=== PATIENT | female | born 1930 | race Caucasian/White ===

== ENCOUNTER → 2016-11-20 | Outpatient (CLI) | payer MEDICARE, OTHER ==
--- NOTE | 2016-11-20 13:28 | RADRPT ---
PROCEDURE: XR pelvis/left hip. CLINICAL INDICATION: Hip pain TECHNIQUE: AP pelvis/AP and lateral left hip view available for review. COMPARISON: None available FINDINGS: ORIF of old healed left intertrochanteric fracture with an intramedullary bessie and a dynamic compress ion screw. There is no evidence of loosening of the prosthesis. The osseous structures are otherwise normal in mineralization, architecture and alignment. No acute fractures are identified. No osseous lesions are identified. The joints are unremarkable. There a re degenerative changes of the lower lumbar spine The soft tissues are unremarkable. IMPRESSION: ORIF of old healed left intertrochanteric fracture with an intramedullary bessie and a dynamic compress ion screw. Lower lumbar degenerative disk disease RPTAT: [facility] .Wang Harrington MD, Date Time Electronically viewed and signed by .Wang Harrington MD, on 11/20/2016 13:28 .B/
== END | disposition home or self-care (01) ==
LOC: HKI 10:57
PROVIDERS: ATTEND Orthopaedic Surgery
DX: S72.142S Displaced intertrochanteric fracture of left femur, sequela (principal); W19.XXXS Unspecified fall, sequela; M25.552 Pain in left hip
CPT/HCPCS: 73502; G0463

== ENCOUNTER → 2017-02-10 | Outpatient (CLI) | payer MEDICARE, OTHER ==
--- NOTE | 2017-02-10 13:37 | RADRPT ---
PROCEDURE: XR pelvis/left hip. CLINICAL INDICATION: Hip pain TECHNIQUE: AP pelvis/AP and lateral left hip views available for review. COMPARISON: 11/20/2016 FINDINGS: ORIF of old healed left intertrochanteric fracture with an intramedullary bessie and a dynamic compress ion screw. There is no evidence of loosening of the prosthesis. There is no evidence of hardware arnol lure. The osseous structures are otherwise normal in mineralization, architecture and alignment. No acute fractures are identified. No osseous lesions are identified. The joints are unremarkable. There are degenerative changes of the lower lumbar spine The soft tissues are unremarkable. IMPRESSION: ORIF of old healed left intertrochanteric fracture with an intramedullary bessie and a dynamic compress ion screw. Lower lumbar degenerative disk disease RPTAT: [facility] .Wang Harrington MD, Date Time Electronically viewed and signed by .Wang Harrington MD, on 02/10/2017 13:37 .B/
--- NOTE | 2017-02-10 13:39 | RADRPT ---
PROCEDURE: XR left femur. CLINICAL INDICATION: Pain TECHNIQUE: AP and lateral views of the lower femur performed. Proximal femur and hip on hip views of 02/10/2017 COMPARISON: No prior studies are available for comparison. FINDINGS: ORIF of old healed left intertrochanteric fracture with a locking intramedullary bessie and a dynamic c ompression screw. There is no evidence of loosening of the prosthesis. There is no evidence of hardw are failure. The osseous structures are otherwise normal in mineralization, architecture and alignment. No acute fractures are identified. No osseous lesions are identified. The joints are unremarkable. IMPRESSION: ORIF of old healed left intertrochanteric fracture with a locking intramedullary bessie and a dynamic c ompression screw. RPTAT: [facility] .Wang Harrington MD, Date Time Electronically viewed and signed by .Wang Harrington MD, on 02/10/2017 13:39 .B/
== END | disposition home or self-care (01) ==
LOC: HKI 10:46
PROVIDERS: ATTEND Orthopaedic Surgery
DX: M25.552 Pain in left hip (principal); S72.142S Displaced intertrochanteric fracture of left femur, sequela
CPT/HCPCS: 73502; 73552; G0463